=== PATIENT | female | born 1930 | race Caucasian/White ===

== ENCOUNTER 2017-04-03 10:18 | Emergency (ER) | payer MEDICARE ==
[~2017-04-03 10:18] MED LIST: ALLO100T PO; ASPI81 PO; CALC0.25 PO; CALC500T21 PO; FERR140T PO; LASI20TA PO; MULTTAB4 PO; OMEG1205 PO; OXYB5TAB33 PO; PRIL20TA2 PO; SODI650T PO; TOPR100T15 PO; ZITH250T PO; ZOCO10TA PO
[2017-04-03 10:25] VITALS: BP 178/46; PULSE 65; RESP 20; TEMP 98.4; O2SAT 97
[2017-04-03] MEDS ORDERED: ZOCO10TA PO (10:56)
[2017-04-03] MEDS ORDERED: CALC1TAB12 PO (10:56)
[2017-04-03] MEDS ORDERED: ASPI81CH14 PO (10:56)
[2017-04-03] MEDS ORDERED: SODI650T PO (10:56)
[2017-04-03] MEDS ORDERED: CALC0.25 PO (10:56)
[2017-04-03] MEDS ORDERED: ASCO100016 PO (10:56)
[2017-04-03] MEDS ORDERED: OMEG100010 PO (10:56)
[2017-04-03] MEDS ORDERED: ONE-TAB14 PO (10:56)
[2017-04-03] MEDS ORDERED: TYLE325T PO (10:56)
[2017-04-03] MEDS ORDERED: FURO20TA PO (10:56)
[2017-04-03] MEDS ORDERED: IRON18TA PO (10:56)
[2017-04-03] MEDS ORDERED: CRAN500C2 PO (10:56)
[2017-04-03] MEDS ORDERED: METO50TA11 PO (10:56)
--- NOTE | 2017-04-03 11:04 | PD ---
HPI Chief Complaint: Pain: Acute or Chronic Time Seen by Provider: 10:40 Travel History International Travel<30 days: No Contact w/Intl Traveler<30days: No Traveled to known affect area: No History of Present Illness HPI This is a 86-year-old female patient who has a past medical history hypertension and atrial fibrillation who is not currently taking any anticoagulation therapy presents with a complaint of pain on the left side of the lower body that has been intermittent for 2 weeks but today patient states she is unable to walk secondary to the pain. Patient notes the pain is specifically in the lower back and also in the left knee and left great toe. Patient notes radiation of the pain from the left knee toward the left toe. Patient denies fever chills or recent traumatic injury to the affected extremity. Patient is currently only taken Tylenol for the pain. Patient states she spoke to her primary care doctor who advised her to come to the ER for a x-rays and evaluation. Patient denies incontinence of urine or stool. PFSH Past Medical History Arthritis: Yes Asthma: No Autoimmune Disease: No Blood Disorders: No Anxiety: No Depression: No Heart Rhythm Problems: No Cancer: No Cardiac Catheterization: No Cardiovascular Problems: Yes (' NEED HEART SURGERY, VALVE PROBLEMS " ) High Cholesterol: Yes Chemotherapy: No Chest Pain: No Congestive Heart Failure: No COPD: No Cerebrovascular Accident: Yes (PER CT 12/2009) Diabetes: No Diminished Hearing: No Endocrine: No Gastrointestinal Disorders: Yes GERD: Yes Glaucoma: No Genitourinary: Yes (BLADDER SUSPENSION) Headaches: No Hepatitis: No Hiatal Hernia: No Hypertension: Yes Immune Disorder: No Kidney Stones: No Musculoskeletal: Yes (RHABDO 2009) Neurologic: Yes Psychiatric: No Reproductive: No Respiratory: No Migraines: No Myocardial Infarction: No Radiation Therapy: No 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) Seizures: No Sickle Cell Disease: No Sleep Apnea: No Thyroid Disease: No Ulcer: No ?: Not Past Surgical History Abdominal Surgery: Yes (OPEN CHOLECYSTECTOMY) AICD: No Appendectomy: No Arteriovenous Shunt: No Cardiac Surgery: No Cholecystectomy: Yes Coronary Artery Bypass Graft: No Ear Surgery: No Endocrine Surgery: No Eye Surgery: No Genitourinary Surgery: No Gynecologic Surgery: Yes (HYSTERECTOMY) Hysterectomy: Yes Insulin Pump: No Joint Replacement: No Oral Surgery: No Pacemaker: No Other Surgery: Yes (LEFT KNEE ARTHROSCOPY) Family History Family Myocardial Infarction: Yes Social History Alcohol Use: No Tobacco Use: No Substance Use: No Allergies-Medications (Allergen,Severity, Reaction): Coded Allergies: Darvocet-N 100 (Verified Allergy, Severe, 04/03/17) Darvon (Verified Allergy, Severe, Nausea/Vomiting, 04/03/17) Sulfa (Verified Allergy, Severe, 04/03/17) Reported Meds & Prescriptions Reported Meds & Active Scripts Active Reported Vitamin C (Ascorbic Acid) 1,000 Mg Tablet.er 1 Tab PO BID Cranberry (Cranberry (Vaccinium Macrocarpon)) 500 Mg Cap 1 Tab PO BID [place] 3 1000 mg ([place]-3 Fatty Acids) 1 Cap Cap 1 Cap PO BID Sodium Bicarbonate 650 Mg Tab 650 Mg PO BIDPC Iron (Ferrous Sulfate) 90 Mg Tab 65 Mg PO BID Calcium 500 +D (Calcium Carbonate-Cholecalciferol) 500-400 Mg-Unit Tab 1 Tab PO TID One Daily Multivitamin (Multivitamin) 1 Each Tablet 1 Tab PO DAILY Calcitriol 0.25 Mcg Cap 0.25 Mcg PO -- Furosemide 20 Mg Tab 20 Mg PO BID Zocor (Simvastatin) 10 Mg Tab 10 Mg PO DAILY Tylenol (Acetaminophen) 325 Mg Tab 650 Mg PO Q4H PRN Aspirin Adult Low Strength (Aspirin) 81 Mg Chew 81 Mg PO DAILY Metoprolol Succinate ER 24 HR (Metoprolol Succinate) 50 Mg Tab 50 Mg PO BID Review of Systems ROS Limitations: Clinical Condition General / Constitutional: No: Fever, Chills, Weight Gain, Weight Loss, Other Eyes: No: Diploplia, Blurred Vision, Photophobia, Drainage, Redness, Foreign Body Sensation, Pain, Tearing, Blind Spots, Visual changes, Blindness, Other HENT: No: Headaches, Vertigo, Lightheadedness, Sore Throat, Rhinitis, Rhinorrhea, Congestion, Nosebleed, Neck Stiffness, Neck Pain, Masses, Gingival Bleeding, Dental Difficulties, Ear Discharge, Earache, Other Cardiovascular: No: Chest Pain or Discomfort, Palpitations, Irregular Rhythm, Tachycardia, Diaphoresis, Syncope, Dyspnea on exertion, Varicosities, Edema, Cyanosis, Varicosities, Phlebitis, Claudication, Other Respiratory: No: Cough, Shortness of Breath, Wheezing, Sneezing, Orthopnea, Hemoptysis, Stridor, Night Sweats, Pleuritic Pain, Other Gastrointestinal: No: Nausea, Vomiting, Diarrhea, Abdominal Pain, Hematemesis, Hematochezia, Constipation, Changes in Bowel Habits, Indigestion, Dysphagia, Loss of Appetite, Other Genitourinary: No: Urgency, Frequency, Dysuria, Nocturia, Hematuria, Decreased Urinary Output, Oliguria, Hesitancy, Dribbling, Incontinence, Pelvic Pain, Flank Pain, Dyspareunia, Discharge, Dysmenorrhea, Menorrhagia, Metorrhagia, Vaginal Bleeding, Other Musculoskeletal: Positive: Arthralgias, Limited ROM, Pain, No: Myalgias, Weakness, Cramping, Edema, Atrophy, Other Skin: No Rash, No Itching, No Dryness, No Lumps, No Hives, No Change in Pigmentation, No Change in nails, No Alopecia, No Lesions, No Breast Lumps, No Breast Tenderness, No Breast Swelling, No Other Neurologic: No: Weakness, Dizziness, Syncope, Focal Abnormalities, Coordination Problem, Tremor, Ataxia, Headache, Change in Mentation, Slurred Speech, Paresthesia, Incontinence, Seizures, Sensory Disturbance, Other Psychiatric: No: Anxiety, Depression, Suicidal Ideations, Disorder of Thought, Mood Disorder, Substance Abuse, Homicidal Ideation, Other Endocrine: No: Heat Intolerance, Cold Intolerance, Polyuria, Polydipsia, Other Hematologic/Lymphatic: No: Easy Bruising, Lymph Node Enlargement, Other Physical Exam Exam Limitations: Clinical Condition Narrative GENERAL: [-]Elderly white female who appears to be in no distress at rest SKIN: Focused skin assessment warm/dry.no lesions no cyanosis no erythema or warmth of the skin overlying the affected joints HEAD: Atraumatic. Normocephalic. EYES: Pupils equal and round and reactive . No scleral icterus. No injection or drainage. ENT: No nasal bleeding or discharge. Mucous membranes pink and moist. NECK: Trachea midline. No JVD. CARDIOVASCULAR: S1-S2 appreciated. Regular rate and rhythm. No murmur appreciated. Pulses normal throughout. RESPIRATORY: No accessory muscle use. Clear to auscultation. Breath sounds equal bilaterally. GASTROINTESTINAL: Abdomen soft, non-tender, nondistended. Hepatic and splenic margins not palpable. Bowel sounds normal. No peritoneal signs. MUSCULOSKELETAL: + tenderness of the lower lumbar spine to palpation and left paraspinal region + normal rom of left hip but tender with abduction normal rom of left knee tender with knee flexion + mild left knee deformity with no edema NEUROLOGICAL: Awake and alert and oriented 3.. No obvious cranial nerve deficits. Motor and sensory exam grossly within normal limits. Normal speech. No meningeal signs. PSYCHIATRIC: Appropriate mood and affect; insight and judgment normal. No suicidal or homicidal ideation. Data Data Last Documented VS Vital Signs Date Time Temp Pulse Resp B/P Pulse Ox O2 Delivery O2 Flow Rate FiO2 04/03/17 10:25 98.4 65 20 178/46 97 Orders Tramadol (Ultram) (04/03/17 11:15) Spine, Lumbar Comp W/Obliq (04/03/17 ) Hip, Uni(4+Vws) W Ap Pelvis (04/03/17 ) Knee, Complete (4vws) (04/03/17 ) Prednisone (Deltasone) (04/04/17 09:00) Prednisone (Deltasone) (04/03/17 13:00) MDM Medical Decision Making Medical Screen Exam Complete: Yes Emergency Medical Condition: Yes Medical Record Reviewed: Yes Interpretation(s) xray of the lumbar spine lef tknee and hip is negative fracture or dislocation djd noted Differential Diagnosis Differential diagnoses degenerative joint disease fracture osteoarthritis and rheumatoid arthritis Narrative Course This is a 86-year-old female who presents to the ER with intermittent pain for 2 weeks no recent trauma noted unable to walk this morning x-ray of the lumbar spine left hip and left knee unremarkable for fracture or dislocation. Joint disease noted in the affected patient given tramadol and prednisone orally for pain patient notes improvement in pain with full ambulatory trial and if possible we'll discharge her on tramadol when necessary 50 mg and prednisone 40 mg a day for 5 days. Patient to follow up with primary care doctor for reevaluation and referral to rheumatology for chair in the future. Diagnosis Primary Impression: acute on chronic joint pain Additional Impression: Arthritis Patient Instructions: Arthralgia (ED), Arthritis (ED), General Instructions Additional Instructions: moist heat to painful areas take take tramadol as needed for pain as directed Take prednisone as directed for 5 days Follow-up with her primary care doctor in 5 days for reevaluation and further management and possible physical therapy Return if symptoms persist or worsen. Scripts Prednisone 20 Mg Tab20 Mg PO BID 5 Days Ref 0 Prov:Devon Aguilar MD 04/03/17 Tramadol 50 Mg Tab50 Mg PO Q8H PRN (PAIN) #15 TAB Ref 0 Prov:Devon Aguilar MD 04/03/17 Condition: Stable Devon Aguilar MD Apr 03, 2017 11:04
[2017-04-03] MEDS ORDERED: traMADol HCL 50 MG TAB PO ONE (11:15)
--- NOTE | 2017-04-03 12:35 | RADRPT ---
EXAM DATE/TIME: 04/03/2017 11:33 [facility] COMPARISON: No previous studies available for comparison. INDICATIONS : Left hip pain with no known injury MEDICAL HISTORY : Rhabdomyolysis, Renal failure SURGICAL HISTORY : Cholecystectomy. Hysterectomy. Frequent urination, bladder suspension ENCOUNTER: Initial ACUITY: 2 days PAIN SCORE: 10/10 LOCATION: Left lateral hip FINDINGS: Examination of the left hip was performed with AP pelvis. The primary and secondary trabecular patte rn of the femoral neck is intact. The hip joint is of normal width without significant sclerosis or bony hypertrophy. The acetabulum is grossly intact. CONCLUSION: Negative for fracture. Geraldo Judge MD FACR on April 03, 2017 at 12:31 Board Certified Radiologist. This report was verified electronically.
--- NOTE | 2017-04-03 12:44 | RADRPT ---
EXAM DATE/TIME: 04/03/2017 11:42 [facility] COMPARISON: No previous studies available for comparison. INDICATIONS : Low back pain with no known injury MEDICAL HISTORY : Rhabdomyolysis, Renal failure SURGICAL HISTORY : Bilateral hemilaminectomy ENCOUNTER: Initial ACUITY: 2 days PAIN SCORE: 10/10 LOCATION: Lumbar spine FINDINGS: There are five non-rib bearing vertebral bodies. The vertebral bodies are in normal alignment withou t evidence of subluxation or scoliosis. The disc spaces are maintained. The posterior elements are intact without evidence of spondylolysis. The pedicles are intact. Bony mineralization is normal. No fracture is identified. CONCLUSION: Degenerative changes, scoliosis and multilevel mild spondylolisthesis. Dae Becker MD on April 03, 2017 at 12:41 Board Certified Radiologist. This report was verified electronically.
--- NOTE | 2017-04-03 12:45 | RADRPT ---
EXAM DATE/TIME: 04/03/2017 11:38 [facility] COMPARISON: No previous studies available for comparison. INDICATIONS : Left knee pain with no known injury MEDICAL HISTORY : Rhabdomyolysis SURGICAL HISTORY : Left knee arthroscopy ENCOUNTER: Initial ACUITY: 2 days PAIN SCORE: 10/10 LOCATION: Left entire knee FINDINGS: There is moderate joint effusion with degenerative changes present. Alignment is anatomic. Fracture is not appreciated. CONCLUSION: Joint effusion without fracture. Geraldo Judge MD FACR on April 03, 2017 at 12:37 Board Certified Radiologist. This report was verified electronically.
[2017-04-03] MEDS ORDERED: predniSONE 50 MG TAB PO ONE (13:00)
[2017-04-03] MEDS ORDERED: TRAM50TA PO (13:07)
[2017-04-03] MEDS ORDERED: PRED20 PO (13:07)
[2017-04-03 13:35] VITALS: BP 123/78
[2017-04-04] MEDS ORDERED: predniSONE 50 MG TAB PO SCH (09:00)
== END 2017-04-03 13:36 | disposition home or self-care (01) ==
LOC: PHED 10:18
DX: M19.90 Unspecified osteoarthritis, unspecified site (principal); M54.5 Low back pain; M25.562 Pain in left knee; E78.00 Pure hypercholesterolemia, unspecified; I12.9 Hypertensive chronic kidney disease with stage 1 through stage 4 chronic kidney disease, or unspecified chronic kidney disease; N18.4 Chronic kidney disease, stage 4 (severe)
CPT/HCPCS: 72110; 73503; 73564; 99284; J7512